=== PATIENT | male | born 1980 ===

== ENCOUNTER 2018-10-15 15:13 | Emergency (ER) | payer OTHER ==
--- NOTE | 2018-10-15 15:26 | ER Report ---
History and Physical Time Seen By MD: 15:26 Hx. of Stated Complaint: Pt. slipped on ice back in March, no acute injury. Now has right buttock pain that radiates down his leg into his calf. Pain 8/10. Pt. seen at urgent care on Saturday, given Flexeril and Prednisone dose pack and isn't getting any relief. HPI/ROS CHIEF COMPLAINT: Right leg pain HISTORY OF PRESENT ILLNESS: 38 year old male presents to ED with reports of right leg pain. Back in March patient slipped on an ice patch and fell on his back. At that time he had back pain that lasted for several weeks, however it eventually went away. 2 weeks ago the same type of back pain returned. Reports dull pain in right lower back that sent shooting, sharp, stabbing, and tingling sensations to his right hamstring and right calf. Denies numbness in his feet, denies saddle anesthesia. Patient reports he has taken 1/2 a tab of old hydrocodone a day since the pain started, which helped with the pain, but he took his last one this weekend. He went to Urgent care on Saturday where they prescribed him a medrol dose pack and cyclobenzaprine. However, his pain has worsened since that time. All movement including standing aggravates the pain; laying in a side lying position helps the pain. REVIEW OF SYSTEMS: Constitutional: Denies fevers, appetite changes Respiratory: No cough, no dyspnea. Cardiovascular: No chest pain, no palpitations. Gastrointestinal: No vomiting, no abdominal pain. Musculoskeletal: Back pain as noted above. Allergies: Coded Allergies: No Known Drug Allergies (Unverified , 10/15/18) Home Meds Active Scripts Hydrocodone Bit/Acetaminophen (HYDROCODON-ACETAMINOPHEN 5-325) 1 Each Tablet, 1 EACH PO Q4-6H PRN for PAIN, #6 TAB Prov:ELICIA MCMILLAN [employer] 10/15/18 Past Medical/Surgical History Past medical hx of FALGUNI. No significant past surgical hx. Reviewed Nurses Notes: Yes Constitutional Vital Sign - Last 24 Hours 10/15/18 10/15/18 10/15/18 10/15/18 15:16 15:18 15:23 15:28 Temp 97.8 Pulse 82 91 93 Resp 20 B/P (MAP) 151/97 151/97 (115) Pulse Ox 88 91 93 O2 Delivery Room Air 10/15/18 10/15/18 10/15/18 10/15/18 15:30 15:33 15:38 15:43 Pulse 86 81 85 B/P (MAP) 127/95 (106) Pulse Ox 94 90 90 10/15/18 10/15/18 10/15/18 10/15/18 15:48 16:14 16:18 16:23 Pulse 77 79 82 B/P (MAP) 138/95 (109) Pulse Ox 90 93 91 10/15/18 10/15/18 10/15/18 16:28 16:30 16:33 Pulse 88 84 B/P (MAP) 134/87 (103) Pulse Ox 89 90 Physical Exam General Appearance: The patient is alert, has no immediate need for airway protection and no current signs of toxicity. Eyes: Pupils equal and round no injection. Respiratory: Chest is non tender, lungs are clear to auscultation. Cardiac: regular rate and rhythm Gastrointestinal: Abdomen is soft and non tender, no masses, bowel sounds normal. Musculoskeletal: Neck: Neck is supple and non tender. Able to perform straight leg raise test, however, when lifting right leg, reports shooting pains. On palpation of right lower back, has mild pain. Sharp pain with palpation of mid hamstring. No pain with palpation of calf. Skin: No rashes or lesions. DIFFERENTIAL DIAGNOSIS: After history and physical exam differential diagnosis was considered for sciatica, disc disease, muscle strain, muscle spasm. Medical Decision Making EKG/Imaging Imaging Lumbar spine x-ray: Findings: AP lateral and both oblique views of the lumbar spine were submitted. There are five nonrib-bearing lumbar-type bodies present. Small marginal osteophyte are noted at L3, L4-L5. There is mild disc space narrowing at L4-5 and L5-S1. Period there is a small calcification projecting just posterior to the L2-3 level. There is a minimal levoconvex scoliosis IMPRESSION: 1. Mild spondylotic changes of lumbar spine as described. If patient's pain co ntinues MR is recommended SI joint x-ray: Findings: The SI joints appear symmetric bilaterally. No significant arthritic change identified within the SI joints. There is no gross evidence of a sacral fracture on provided images. IMPRESSION: 1. Unremarkable SI joints ED Course/Re-evaluation ED Course Upon arrival to the ED, patient admitted to an exam room, hx and physical obtained, differentials considered. Patient presents with right low back pain that radiates down his right leg. Back in March patient slipped on an ice patch and fell on his back. At that time he had back pain that lasted for several weeks, however it eventually went away. 2 weeks ago the same type of back pain returned. Reports dull pain in right lower back that sends shooting, sharp, stabbing, and tingling sensations to his right hamstring and right calf. Denies numbness in his feet, denies saddle anesthesia. He went to Urgent care on Saturday where they prescribed him a medrol dose pack and cyclobenzaprine. However, his pain has worsened since that time. Able to perform straight leg raise test, however, when lifting right leg, reports shooting pains. On palpation of right lower back, has mild pain. Sharp pain with palpation of mid hamstring. No pain with palpation of calf. Lumbar spine and SI joint x-rays ordered. Lumbar x-ray showed There is mild disc space narrowing at L4-5 and L5- S1. Unremarkable SI joints. Since no acute concern at this time, will refer patient to Dr. Garcia for further evaluation. In the meantime will prescribe Lrotab to help with the pain and have him continue his medrol dose pack and c yclobenzaprine he received from Urgent care. Patient agrees with plan of care. Decision to Disposition Date: Oct 15, 2018 Decision to Disposition Time: 16:40 Depart Departure Latest Vital Signs Vital Signs Date Time Temp Pulse Resp B/P (MAP) Pulse Ox O2 Delivery O2 Flow Rate FiO2 10/15/18 16:33 84 90 10/15/18 16:30 134/87 (103) 10/15/18 15:16 97.8 20 Room Air Impression: Primary Impression: Sciatic leg pain Condition: Condition Unchanged Disposition: HOME OR SELF-CARE Referrals: LUBA GARCIA MD New Scripts Hydrocodone Bit/Acetaminophen (HYDROCODON-ACETAMINOPHEN 5-325) 1 Each Tablet 1 EACH PO Q4-6H PRN for PAIN, #6 TAB Prov: ELICIA MCMILLAN [employer] 10/15/18 Patient Instructions: Sciatica (ED) Additional Instructions: Please drink plenty of water and get plenty of rest. You may take 1 tab of lortab every 4-6 hours as needed. Please follow-up with Dr. Garcia as soon as possible for continued pain. Continue to take the medications prescribed to you by Urgent care. Please return to the ED with increased pain, numbness in your extremities, or any other concerns. ELICIA MCMILLAN Oct 15, 2018 15:26
--- NOTE | 2018-10-15 16:28 | RADIOLOGY IMAGING REPORT ---
FACILITY: [facility] - [place] PATIENT NAME: Jimbo Varghese : 1980 MR: [id number] V: [id number] EXAM DATE: ORDERING PHYSICIAN: ELICIA MCMILLAN TECHNOLOGIST: Location: [facility] - [place] Patient: Jimbo Varghese : 1980 Visit/Account:[id number] Date of Sevice: 10/15/2018 Exam type: SACROILIAC JOINT 3 OR > VIEWS History: 2018, splinting numbness and tingling occasionally Comparison: None. Findings: The SI joints appear symmetric bilaterally. No significant arthritic change identified within the SI joints. There is no gross evidence of a sacral fracture on provided images. IMPRESSION: 1. Unremarkable SI joints Report Dictated By: Freya Garcia MD at 10/15/2018 4:22 PM Report E-Signed By: Freya Garcia MD at 10/15/2018 4:23 PM WSN:[email or web address]
[2018-10-15 16:30] VITALS: BP 134/87
--- NOTE | 2018-10-15 16:31 | RADIOLOGY IMAGING REPORT ---
FACILITY: [facility] - [place] PATIENT NAME: Jimbo Varghese : 1980 MR: [id number] V: [id number] EXAM DATE: ORDERING PHYSICIAN: ELICIA MCMILLAN TECHNOLOGIST: Location: [facility] - [place] Patient: Jimbo Varghese : 1980 Visit/Account:[id number] Date of Sevice: 10/15/2018 Exam type: L-SPINE >4 VIEWS History: Fell in March 2018, experiencing numbness and tingling occasionally Comparison: None. Findings: AP lateral and both oblique views of the lumbar spine were submitted. There are five nonrib-bearing lumbar-type bodies present. Small marginal osteophyte are noted at L3, L4-L5. There is mild disc space narrowing at L4-5 and L5-S1. Period there is a small calcification projecting just posterior to the L2-3 level. There is a minimal levoconvex scoliosis IMPRESSION: 1. Mild spondylotic changes of lumbar spine as described. If patient's pain continues MR is recomme nded Report Dictated By: Freya Garcia MD at 10/15/2018 4:23 PM Report E-Signed By: Freya Garcia MD at 10/15/2018 4:25 PM WSN:[email or web address]
[2018-10-15] MEDS ORDERED: LOR5/325 PO (16:43)
== END 2018-10-15 16:52 | disposition home or self-care (01) ==
LOC: ER 15:21
DX: M54.31 Sciatica, right side (principal)
CPT/HCPCS: 72120; 72202; 99284

== ENCOUNTER 2018-11-24 13:47 | Emergency (ER) | payer OTHER ==
[~2018-11-24 13:47] MED LIST: LOR5/325 PO
[2018-11-24 14:22] VITALS: BP 132/97
--- NOTE | 2018-11-24 14:56 | ER Report ---
History and Physical Time Seen By MD: 13:50 Hx. 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 Cardiovascular: No chest pain, no palpitations. Gastrointestinal: No vomiting, no abdominal pain. Musculoskeletal: No back pain. Remainder of the 14 system rev: Yes Allergies: Coded Allergies: No Known Drug Allergies (Unverified , 11/24/18) Home Meds Discontinued Scripts Hydrocodone Bit/Acetaminophen (HYDROCODON-ACETAMINOPHEN 5-325) 1 Each Tablet, 1 EACH PO Q4-6H PRN for PAIN, #6 TAB Prov:ELICIA MCMILLAN [employer]ING CLE[employer]ER 10/15/18 Reviewed Nurses Notes: Yes Old Medical Records Reviewed: Yes Constitutional Vital Sign - Last 24 Hours 11/24/18 14:22 Temp 99.5 Pulse 117 Resp 16 B/P (MAP) 132/97 Pulse Ox 89 O2 Delivery Room Air Physical Exam General appearance: Alert no distress. Respiratory: Chest is non tender, lungs are clear to auscultation. Cardiac: Regular rate and rhythm [ ] Scrotal inguinal exam patient does have a 6 x 8 cm area and around the inguinal and scrotal region consistent with a probable abscess nonfluctuant somewhat mobile clearly indurated DIFFERENTIAL DIAGNOSIS: After history and physical exam differential diagnosis was considered for abscess versus mass Medical Decision Making ED Course/Re-evaluation ED Course ED course 38-year-old male comes in with an indurated abscess in the right inguinal area unable to be drained at this time with procedure talked to general surgery after the ultrasound he had reviewed decided was put on antibiotics in the next 2 days and have him follow-up in his clinic I will he'll hopefully have enough up to drain at that point Decision to Disposition Date: Nov 24, 2018 Decision to Disposition Time: 15:00 Depart Departure Latest Vital Signs Vital Signs Date Time Temp Pulse Resp B/P (MAP) Pulse Ox O2 Delivery O2 Flow Rate FiO2 7/15/19 14:22 99.5 117 16 132/97 89 Room Air Impression: Primary Impression: Abscess Condition: Condition Unchanged Disposition: HOME OR SELF-CARE Referrals: JOSE PRECIADO MD 2 Days New Scripts Amoxicillin/Pot Clav 875-125 Mg Tab (AUGMENTIN 875-125 TABLET) 1 Each Tablet 1 TAB PO Q12H for 7 Days, #14 TAB Prov: JAYESH MACDONALD MD 11/24/18 Patient Instructions: Abscess (ED) Additional Instructions: Apply warm compresses frequently JAYESH MACDONALD MD Nov 24, 2018 14:56
[2018-11-24] MEDS ORDERED: AMOX-559 PO (15:04)
--- NOTE | 2018-11-24 15:13 | RADIOLOGY IMAGING REPORT ---
FACILITY: [facility] - [place] PATIENT NAME: Jimbo Varghese : 1980 MR: [id number] V: [id number] EXAM DATE: ORDERING PHYSICIAN: JAYESH MACDONALD TECHNOLOGIST: Location: [facility] Patient: Jimbo Varghese : 1980 Visit/Account:[id number] Date of Sevice: 11/24/2018 EXAMINATION: Right groin ultrasound HISTORY: Palpable lump at the right groin. COMPARISON: None. FINDINGS: Ultrasound evaluation was performed along the soft tissues of the right groin in an area of palpable concern. Imaging in this region demonstrates a complex hypoechoic fluid collection measuring 2.6 x 2.6 x 1.0 c m, with some peripheral hyperemia and adjacent soft tissue edema. IMPRESSION: Complex 2.6 cm fluid collection in the superficial soft tissues at the right groin. Ultrasound appear ance is somewhat nonspecific but in the proper clinical setting this could be compatible with a local ized soft tissue abscess. Report Dictated By: Garland Mitchell MD at 11/24/2018 3:03 PM Report E-Signed By: Garland Mitchell MD at 11/24/2018 3:06 PM WSN:[id number]
[2018-11-26] MEDS ORDERED: TRAM-420 PO (17:23)
== END 2018-11-24 15:14 | disposition home or self-care (01) ==
LOC: ER 14:17
DX: L02.214 Cutaneous abscess of groin (principal)
CPT/HCPCS: 76705; 99284

== ENCOUNTER → 2018-11-26 | Outpatient (CLI) | payer OTHER ==
[~2018-11-26] MED LIST changes: +AMOX-559 PO; +ENOX40DI9 SC; +ERTA1VIA IV; +PANT40VI4 IVP; +TRAM-420 PO; +VANC1.5V3 IV; +[UNRECOGNIZED DRUG - CODE] IV
== END ==
LOC: LAB 17:09
PROVIDERS: ATTEND Surgery
DX: N49.2 Inflammatory disorders of scrotum (principal); B95.1 Streptococcus, group B, as the cause of diseases classified elsewhere; B96.89 Other specified bacterial agents as the cause of diseases classified elsewhere
CPT/HCPCS: 87070; 87073; 87077; 87186

== ENCOUNTER 2018-11-28 12:26 | Inpatient (IN) | payer OTHER ==
[~2018-11-28] VITALS: Ht 175.3 cm; Wt 149.7 kg
[2018-11-28] VITALS (18 sets, daily range): BP systolic 102–124; BP diastolic 60–76
[~2018-11-28 12:26] MED LIST changes: -ENOX40DI9 SC; -ERTA1VIA IV; -PANT40VI4 IVP; -VANC1.5V3 IV; -[UNRECOGNIZED DRUG - CODE] IV
--- NOTE | 2018-11-28 12:28 | ER Report ---
History and Physical Time Seen By MD: 12:25 HPI/ROS CHIEF COMPLAINT: Fever, tachycardic, decreased appetite, altered mental status HISTORY OF PRESENT ILLNESS: Patient is a 38-year-old male here with complaints of nausea, decreased appetite, altered mental status, fevers, dehydration in the setting of a recent groin abscess drainage on November [address] Madrigal. Patient reportedly has had increasing pain today, decreased appetite, nausea and reports of altered mental status per patient's fiance. Patient is afebrile, tachycardic, normotensive at time of arrival. REVIEW OF SYSTEMS: Constitutional: + fever, + chills. Eyes: No discharge. ENT: No sore throat. Cardiovascular: No chest pain, no palpitations. Respiratory: No cough, no shortness of breath. Gastrointestinal: + abdominal pain, no vomiting.+ Nausea Genitourinary: No hematuria. Testicular pain, recent history of testicular abscess Musculoskeletal: No back pain. Skin: Erythema of the groin and right side of the scrotum Neurological: No headache. + Somnolent, altered mental status Allergies: Coded Allergies: No Known Drug Allergies (Unverified , 11/24/18) Home Meds Active Scripts Tramadol Hcl (TRAMADOL HCL) 50 Mg Tablet, 1-2 TAB PO Q4H PRN for PAIN, #20 TAB 0 Refills Prov:JOSE PRECIADO MD 11/26/18 Amoxicillin/Pot Clav 875-125 Mg Tab (AUGMENTIN 875-125 TABLET) 1 Each Tablet, 1 TAB PO Q12H for 7 Days, #14 TAB Prov:JAYESH MACDONALD MD 11/24/18 Discontinued Scripts Hydrocodone Bit/Acetaminophen (HYDROCODON-ACETAMINOPHEN 5-325) 1 Each Tablet, 1 EACH PO Q4-6H PRN for PAIN, #6 TAB Prov:ELICIA MCMILLAN [employer] 10/15/18 Constitutional Vital Sign - Last 24 Hours 11/28/18 11/28/18 12:37 13:03 Temp 99.6 Pulse 129 Resp 16 B/P (MAP) 126/78 Pulse Ox 87 O2 Delivery Room Air O2 Flow Rate 2.0 Physical Exam General Appearance: The patient is alert, has no immediate need for airway protection and no signs of toxicity. Uncomfortable appearing Eyes: Pupils equal and round no pallor or injection. ENT, Mouth: Mucous membranes are moist. Respiratory: There are no retractions, lungs are clear to auscultation. Cardiovascular: Sinus tachycardia Gastrointestinal: Abdomen is soft and tender in the lower abdominal distribution into the right groin and testicle Neurological: Somnolent, slow to respond, moving all extremities spontaneously, cranial nerves intact Skin: Erythema and tenderness in the right groin and scrotum Musculoskeletal: Extremities are nontender, nonswollen and have full range of motion. DIFFERENTIAL DIAGNOSIS: After history and physical exam differential diagnosis w as considered for adult fever including but not limited to viral syndromes including influenza, urinary tract infection, pneumonia and sepsis. Medical Decision Making Data Points Result Diagram: 11/28/18 1254 11/28/18 1254 Laboratory Hematology Test 11/28/18 12:54 White Blood Count 9.0 k/uL (4.5-11.0) Red Blood Count 4.83 M/uL (4.00-5.60) Hemoglobin 14.7 g/dL (14.0-18.0) Hematocrit 42.6 % (42.0-52.0) Mean Corpuscular Volume 88.3 fL (80.0-96.0) Mean Corpuscular Hemoglobin 30.5 pg (26.0-33.0) Mean Corpuscular Hemoglobin Concent 34.6 g/dL (32.0-36.0) Red Cell Distribution Width 13.5 % (11.5-14.5) Platelet Count 192 K/uL (150-450) Mean Platelet Volume 9.7 fL (7.2-11.1) Neutrophils (%) (Auto) 85.4 % (39.4-72.5) H Lymphocytes (%) (Auto) 8.8 % (17.6-49.6) L Monocytes (%) (Auto) 5.0 % (4.1-12.4) Eosinophils (%) (Auto) 0.1 % (0.4-6.7) L Basophils (%) (Auto) 0.7 % (0.3-1.4) Nucleated RBC Relative Count (auto) 0.2 /100WBC Neutrophils # (Auto) 7.7 K/uL (2.0-7.4) H Lymphocytes # (Auto) 0.8 K/uL (1.3-3.6) L Monocytes # (Auto) 0.4 K/uL (0.3-1.0) Eosinophils # (Auto) 0.0 K/uL (0.0-0.5) Basophils # (Auto) 0.1 K/uL (0.0-0.1) Nucleated RBC Absolute Count (auto) 0.01 K/uL Chemistry Test 11/28/18 12:54 Sodium Level 127 mmol/L (137-145) Potassium Level 3.9 mmol/L (3.5-5.0) Chloride Level 92 mmol/L (98-107) Carbon Dioxide Level 16 mmol/L (22-30) Blood Urea Nitrogen 23 mg/dl (9-21) Creatinine 0.80 mg/dl (0.66-1.25) Glomerular Filtration Rate Calc > 60.0 Random Glucose 577 mg/dl (75-110) Lactate 2.9 mmol/L (0.7-2.1) Calcium Level 9.1 mg/dl (8.4-10.2) Total Bilirubin 0.9 mg/dl (0.2-1.3) Aspartate Amino Transf (AST/SGOT) 27 U/L (0-35) Alanine Aminotransferase (ALT/SGPT) 25 U/L (0-56) Alkaline Phosphatase 132 U/L (0-126) Total Protein 7.1 g/dl (6.3-8.2) Albumin 3.3 g/dl (3.5-5.0) Lipase 515 U/L (23-300) Urinalysis Test 11/28/18 12:54 Urine Color Yellow Urine Clarity Slightly-cloudy Urine pH 6.0 pH (4.8-9.5) Urine Specific [place] 1.028 Urine Protein 30 mg/dL (NEGATIVE) Urine Glucose (UA) 500 mg/dL (NEGATIVE) Urine Ketones 20 mg/dL (NEGATIVE) Urine Blood Moderate (NEGATIVE) Urine Nitrite Negative (NEGATIVE) Urine Bilirubin Negative (NEGATIVE) Urine Urobilinogen 2.0 mg/dL (0.2-1.9) Urine Leukocyte Esterase Large (NEGATIVE) Urine RBC 15 /HPF (0-2/HPF) Urine WBC 30 /HPF (0-5/HPF) Urine Squamous Epithelial Cells Many /LPF (</=FEW) Urine Bacteria Few /HPF (NONE-FEW) Urine Mucus Few /HPF (NONE-FEW) EKG/Imaging Imaging PATIENT NAME: Jimbo Varghese : 1980 MR: [id number] V: [id number] EXAM DATE: ORDERING PHYSICIAN: ROME BROWN TECHNOLOGIST: Location: [facility] - [place] Patient: Jimbo Varghese : 1980 Visit/Account:[id number] Date of Sevice: 11/28/2018 Scrotal and groin ultrasound INDICATION: Draining abscess COMPARISON: Groin ultrasound 11/24/[address] chest abdomen pelvis 11/28/2018 FINDINGS: Right testicle measures 4.3 x 1.8 x 2.9 cm in cc, AP, and transverse dimensions respectively. Increased blood flow is noted within the right testis and the epididymis There is a moderate complex fluid collection present No varicocele identified. The right epididymal head measures 0.9cm. And the body is diffusely enlarged and hyperemic Left testicle measures 3.1 x 1.9 x 3.2 cm in cc, AP, and transverse dimensions respectively. There is diffusely increased blood flow noted There is a large very complex hydrocele present. No varicocele identified. The left epididymal head measures 0.9 cm. The epididymis is diffusely enlarged and increased in vascularity The bilateral testicles appear homogenous in echogenicity. Groin ultrasound demonstrates no significant fluid collection. Previously described small fluid collection within the right groin appears to have resolved. IMPRESSION: 1. There are complex bilateral fluid hydroceles left greater than right. Bilaterally, there is increased blood flow noted within the testes and heterogeneously enlarged and vascular epididymides. Findings are concerning for bilateral epididymal orchitis with bilateral hydroceles. When compared to recent CT scan, diffuse inflammation and complex fluid collections are also noted on CT scan. Recommend urology consultation. 2. Interval resolution of complex fluid within the right groin. No fluid collection is noted within the left groin. Results were discussed with ROME BROWN at 11/28/2018 3:13 PM. Report Dictated By: Jd Diaz at 11/28/2018 2:52 PM Report E-Signed By: Jd Diaz at 11/28/2018 3:13 PM PATIENT NAME: Jimbo Varghese : 1980 MR: [id number] V: [id number] EXAM DATE: ORDERING PHYSICIAN: ROME BROWN TECHNOLOGIST: Location: [facility] [place] Patient: Jimbo Varghese : 1980 Visit/Account:[id number] Date of Sevice: 11/28/2018 Scrotal and groin ultrasound INDICATION: Draining abscess COMPARISON: Groin ultrasound 11/24/[address] chest abdomen pelvis 11/28/2018 FINDINGS: Right testicle measures 4.3 x 1.8 x 2.9 cm in cc, AP, and transverse dimensions respectively. Increased blood flow is noted within the right testis and the epididymis There is a moderate complex fluid collection present No varicocele identified. The right epididymal head measures 0.9cm. And the body is diffusely enlarged and hyperemic Left testicle measures 3.1 x 1.9 x 3.2 cm in cc, AP, and transverse dimensions respectively. There is diffusely increased blood flow noted There is a large very complex hydrocele present. No varicocele identified. The left epididymal head measures 0.9 cm. The epididymis is diffusely enlarged and increased in vascularity The bilateral testicles appear homogenous in echogenicity. Groin ultrasound demonstrates no significant fluid collection. Previously described small fluid collection within the right groin appears to have reso lved. IMPRESSION: 1. There are complex bilateral fluid hydroceles left greater than right. Bilat erally, there is increased blood flow noted within the testes and heterogeneously enlarged and vascular epididymides. Findings are concerning for bilateral epididymal orchitis with bilateral hydroceles. When compared to recent CT scan, diffuse inflammation and complex fluid collections are also no wilson on CT scan. Recommend urology consultation. 2. Interval resolution of complex fluid within the right groin. No fluid collection is noted within the left groin. Results were discussed with ROME BROWN at 11/28/2018 3:13 PM. PATIENT NAME: Jimbo Varghese : 1980 MR: [id number] V: [id number] EXAM DATE: ORDERING PHYSICIAN: ROME BROWN TECHNOLOGIST: Location: [facility] [place] Patient: Jimbo Varghese : 1980 Visit/Account:[id number] Date of Sevice: 11/28/2018 EXAMINATION: CT chest, abdomen, and pelvis with IV contrast HISTORY: Sepsis. History of scrotal abscess, abdominal pain, AMS TECHNIQUE: Axial CT images of the chest, abdomen, and pelvis were obtained with IV contrast, with coronal and sagittal 2D reconstructed images. One of the following dose optimization techniques was utilized in the pe rformance of this exam: Automated exposure control; adjustment of the mA and/or kV according to the patient's size; or use of an iterative reconstruction technique. Specific details can be referenced in the facility's radiology CT exam operational policy. Contrast: 75 mL of IV Isovue-370. COMPARISON: Right groin ultrasound 11/24/2018. FINDINGS: Chest: Lungs and pleura: The lungs are clear. No focal consolidation. No pleural effusion or pneumothorax. The central airways are patent. Mediastinum and trini: Negative. Heart, aorta, and great vessels: Normal caliber thoracic aorta. Normal heart size. No pericardial effusion. Chest lymph node assessment: Negative. Bones: Negative. Chest wall: Negative. Lower neck: Negative. Abdomen/pelvis: Liver: Fatty infiltration of the liver. Gallbladder and bile ducts: Negative. Spleen: Negative. Pancreas: Negative. Adrenal glands: Negative. Kidneys: Normal size and morphology of both kidneys. The kidneys enhance normally. No urinary calculi or hydronephrosis. Bowel and peritoneum: The small bowel and colon are normal in caliber, without evidence of obstruction or any focal inflammatory process. No localized bowel wall thickening. Normal appendix. No free fluid or free intraperitoneal air. Pelvic structures: The urinary bladder is decompressed with a Fabian catheter in place. There is diffuse soft tissue edema along the scrotum and perineum. No soft tissue gas. There is a complex peripherally enhancing fluid collection in the left hemiscrotum surrounding the left testicle which may represent a complex hydrocele, pyocele, or abscess. This measures approximately 8.0 x 4.3 x 6.8 cm. No scrotal gas. There is a smaller right-sided likely complex hydrocele or pyocele partially surrounding the right testicle. Scrotal findings could be further evaluated with ultrasound. No discrete CT evidence of a soft tissue abscess at either groin. There is some nonloculated fluid and edema tracking tinsley periorly along the right groin. Lymph node assessment: Negative. Vessels: Negative. Musculoskeletal: Scattered degenerative changes along the lumbar spine. No acute osseous findings. Body wall: Abdominal wall structures appear intact. There is some nonloculated fluid tracking along the right groin. IMPRESSION: 1. There is diffuse scrotal edema with a moderate sized peripherally enhancing fluid collection in the left hemiscrotum surrounding the left testicle which may represent complex hydrocele, pyocele, or abscess. Smaller right-sided peritesticular fluid collection. 2. Soft tissue edema and stranding tracks posteriorly along the perineum and superiorly along the right groin. No scrotal or perineal gas. 3. No other acute findings in the chest, abdomen, or pelvis. 4. Hepatic steatosis. Report Dictated By: Garland Mitchell MD at 11/28/2018 2:44 PM ED Course/Re-evaluation ED Course Patient is a 38-year-old male here with complaints of subjective fevers, chills, testicular pain at the site of a prior abscess drainage, nausea, somnolence. Se psis workup was initiated, blood cultures were collected, IV fluid resuscitation was initiated and patient was administered ertapenem for antimicrobial coverage. Patient reportedly has been taking Augmentin without improvement. Patient was given 3 subsequent liters of normal saline boluses with improvement of hemodynamic's. CT imaging of the chest and pelvis were completed as well as ultrasound of the groin testes identifying complex hydroceles bilaterally. I discussed the patient with Dr. Gallo with urology and with Dr. Thorne with the hospitalist service. Patient was admitted for further treatment and care. Decision to Disposition Date: Nov 28, 2018 Decision to Disposition Time: 16:04 Depart Departure Latest Vital Signs Vital Signs Date Time Temp Pulse Resp B/P (MAP) Pulse Ox O2 Delivery O2 Flow Rate FiO2 11/28/18 13:03 2.0 11/28/18 12:37 99.6 129 16 126/78 87 Room Air Impression: Primary Impression: Testicular abscess Additional Impression: Sepsis Condition: Improved Disposition: Admitted from ER Referrals: JOSE PRECIADO MD (PCP) Problem Qualifiers ROME BROWN DO Nov 28, 2018 12:28
[2018-11-28] MEDS ORDERED: KETOROLAC 30 MG/ML VIAL IVP ONE (12:40)
[2018-11-28] MEDS ORDERED: fentaNYL CITR 100 MCG/2 ML AMP IVP ONE (12:40)
[2018-11-28] MEDS ORDERED: NS(*) 0.9% 1000 ML BAG 1,000 ML IV ONE ×3 (12:40→15:20)
[2018-11-28] MEDS ORDERED: ERTAPENEM(*) 1 GM VIAL 1 GM in NS(*) 0.9% 100 ML MINI-BAG 100 ML IVPB ONE (12:50)
[2018-11-28 13:15] LABS: PLATELET COUNT, AUTOMATED 192 K/uL (150-450)
[2018-11-28] MEDS ORDERED: IOPAMIDOL 76% 100 ML INFUS BTL 100 ML ONE (13:23)
[2018-11-28] MEDS ORDERED: ACETAMINOPHEN(*)1000 MG/100 ML 100 ML IVPB ONE (13:45)
--- NOTE | 2018-11-28 15:04 | RADIOLOGY IMAGING REPORT ---
FACILITY: [facility] - [place] PATIENT NAME: Jimbo Varghese : 1980 MR: [id number] V: [id number] EXAM DATE: ORDERING PHYSICIAN: ROME BROWN TECHNOLOGIST: Location: [facility] Patient: Jimbo Varghese : 1980 Visit/Account:[id number] Date of Sevice: 11/28/2018 EXAMINATION: CT chest, abdomen, and pelvis with IV contrast HISTORY: Sepsis. History of scrotal abscess, abdominal pain, AMS TECHNIQUE: Axial CT images of the chest, abdomen, and pelvis were obtained with IV contrast, with c oronal and sagittal 2D reconstructed images. One of the following dose optimization techniques was utilized in the performance of this exam: Autom ated exposure control; adjustment of the mA and/or kV according to the patient's size; or use of an i terative reconstruction technique. Specific details can be referenced in the facility's radiology C T exam operational policy. Contrast: 75 mL of IV Isovue-370. COMPARISON: Right groin ultrasound 11/24/2018. FINDINGS: Chest: Lungs and pleura: The lungs are clear. No focal consolidation. No pleural effusion or pneumothorax. The central airways are patent. Mediastinum and trini: Negative. Heart, aorta, and great vessels: Normal caliber thoracic aorta. Normal heart size. No pericardial ef fusion. Chest lymph node assessment: Negative. Bones: Negative. Chest wall: Negative. Lower neck: Negative. Abdomen/pelvis: Liver: Fatty infiltration of the liver. Gallbladder and bile ducts: Negative. Spleen: Negative. Pancreas: Negative. Adrenal glands: Negative. Kidneys: Normal size and morphology of both kidneys. The kidneys enhance normally. No urinary calcul i or hydronephrosis. Bowel and peritoneum: The small bowel and colon are normal in caliber, without evidence of obstructi on or any focal inflammatory process. No localized bowel wall thickening. Normal appendix. No free fl uid or free intraperitoneal air. Pelvic structures: The urinary bladder is decompressed with a Fabian catheter in place. There is d iffuse soft tissue edema along the scrotum and perineum. No soft tissue gas. There is a complex perip herally enhancing fluid collection in the left hemiscrotum surrounding the left testicle which may re present a complex hydrocele, pyocele, or abscess. This measures approximately 8.0 x 4.3 x 6.8 cm. No scrotal gas. There is a smaller right-sided likely complex hydrocele or pyocele partially surrounding the right testicle. Scrotal findings could be further evaluated with ultrasound. No discrete CT evid ence of a soft tissue abscess at either groin. There is some nonloculated fluid and edema tracking tinsley periorly along the right groin. Lymph node assessment: Negative. Vessels: Negative. Musculoskeletal: Scattered degenerative changes along the lumbar spine. No acute osseous findings. Body wall: Abdominal wall structures appear intact. There is some nonloculated fluid tracking along t he right groin. IMPRESSION: 1. There is diffuse scrotal edema with a moderate sized peripherally enhancing fluid collection in th e left hemiscrotum surrounding the left testicle which may represent complex hydrocele, pyocele, or a bscess. Smaller right-sided peritesticular fluid collection. 2. Soft tissue edema and stranding tracks posteriorly along the perineum and superiorly along the rig ht groin. No scrotal or perineal gas. 3. No other acute findings in the chest, abdomen, or pelvis. 4. Hepatic steatosis. Report Dictated By: Garland Mitchell MD at 11/28/2018 2:44 PM Report E-Signed By: Garland Mitchell MD at 11/28/2018 2:56 PM WSN:[id number]
--- NOTE | 2018-11-28 15:20 | RADIOLOGY IMAGING REPORT ---
FACILITY: [facility] - [place] PATIENT NAME: Jimbo Varghese : 1980 MR: [id number] V: [id number] EXAM DATE: ORDERING PHYSICIAN: ROME BROWN TECHNOLOGIST: Location: [facility] Patient: Jimbo Varghese : 1980 Visit/Account:[id number] Date of Sevice: 11/28/2018 Scrotal and groin ultrasound INDICATION: Draining abscess COMPARISON: Groin ultrasound 11/24/[address] chest abdomen pelvis 11/28/2018 FINDINGS: Right testicle measures 4.3 x 1.8 x 2.9 cm in cc, AP, and transverse dimensions respectively. Increased blood flow is noted within the right testis and the epididymis There is a moderate complex fluid collection present No varicocele identified. The right epididymal head measures 0.9cm. And the body is diffusely enlarged and hyperemic Left testicle measures 3.1 x 1.9 x 3.2 cm in cc, AP, and transverse dimensions respectively. There is diffusely increased blood flow noted There is a large very complex hydrocele present. No varicocele identified. The left epididymal head measures 0.9 cm. The epididymis is diffusely enlarged and increased in vascu larity The bilateral testicles appear homogenous in echogenicity. Groin ultrasound demonstrates no significant fluid collection. Previously described small fluid shayna ection within the right groin appears to have resolved. IMPRESSION: 1. There are complex bilateral fluid hydroceles left greater than right. Bilaterally, there is incr eased blood flow noted within the testes and heterogeneously enlarged and vascular epididymides. Fin dings are concerning for bilateral epididymal orchitis with bilateral hydroceles. When compared to r ecent CT scan, diffuse inflammation and complex fluid collections are also noted on CT scan. Recomme nd urology consultation. 2. Interval resolution of complex fluid within the right groin. No fluid collection is noted within the left groin. Results were discussed with ROME BROWN at 11/28/2018 3:13 PM. Report Dictated By: Jd Diaz at 11/28/2018 2:52 PM Report E-Signed By: Jd Diaz at 11/28/2018 3:13 PM WSN:[email or web address]
--- NOTE | 2018-11-28 15:20 | RADIOLOGY IMAGING REPORT ---
FACILITY: [facility] PATIENT NAME: Jimbo Varghese : 1980 MR: [id number] V: [id number] EXAM DATE: ORDERING PHYSICIAN: ROME BROWN TECHNOLOGIST: Location: [facility] - [place] Patient: Jimbo Varghese : 1980 Visit/Account:[id number] Date of Sevice: 11/28/2018 Scrotal and groin ultrasound INDICATION: Draining abscess COMPARISON: Groin ultrasound 11/24/[address] chest abdomen pelvis 11/28/2018 FINDINGS: Right testicle measures 4.3 x 1.8 x 2.9 cm in cc, AP, and transverse dimensions respectively. Increased blood flow is noted within the right testis and the epididymis There is a moderate complex fluid collection present No varicocele identified. The right epididymal head measures 0.9cm. And the body is diffusely enlarged and hyperemic Left testicle measures 3.1 x 1.9 x 3.2 cm in cc, AP, and transverse dimensions respectively. There is diffusely increased blood flow noted There is a large very complex hydrocele present. No varicocele identified. The left epididymal head measures 0.9 cm. The epididymis is diffusely enlarged and increased in vascu larity The bilateral testicles appear homogenous in echogenicity. Groin ultrasound demonstrates no significant fluid collection. Previously described small fluid shayna ection within the right groin appears to have resolved. IMPRESSION: 1. There are complex bilateral fluid hydroceles left greater than right. Bilaterally, there is incr eased blood flow noted within the testes and heterogeneously enlarged and vascular epididymides. Fin dings are concerning for bilateral epididymal orchitis with bilateral hydroceles. When compared to r ecent CT scan, diffuse inflammation and complex fluid collections are also noted on CT scan. Recomme nd urology consultation. 2. Interval resolution of complex fluid within the right groin. No fluid collection is noted within the left groin. Results were discussed with ROME BROWN at 11/28/2018 3:13 PM. Report Dictated By: Jd Diaz at 11/28/2018 2:52 PM Report E-Signed By: Jd Diaz at 11/28/2018 3:13 PM WSN:[email or web address]
[2018-11-28] MEDS ORDERED: INS HUM REG* 100 U/ML(ER ONLY) 100 UNIT in NS(*) 0.9% 100 ML BAG 99 ML IVPB ONE (16:25)
[2018-11-28] MEDS ORDERED: INSU HUM REG 100 U/ML(ER ONLY) 10 ML VIAL SUBQ ONE (16:30)
[2018-11-28] MEDS ORDERED: INFLUENZA VIRUS VAC 0.5ML SYR IM ONLY ONE (17:10)
[2018-11-28] MEDS ORDERED: KCL/NS* 20 MEQ/1000 ML PREMIX 1,000 ML IV SCH (17:10)
--- NOTE | 2018-11-28 17:55 | History & Physical ---
History of Present Illness History of Present Illness 38yo obese male who came to the ER for confusion, fever, and decreased appetite. About 4 months ago, he noted 3 pimples on the left side of his scrotum. He popped them and he did fine afterwards. Around the same time, he noted increasing thirst. About a week ago, he started having swelling and pain around the right scrotum. 4 days ago (11/24), he went to the ER and was found to have right sided scrotal abscess. He was put on Augmentin and then saw Dr. Preciado 2 days ago (11/26). The scrotum had increased in size by then. It was drained and then packed. He had a lot of drainage. He has had a fever for the last 2 days. He was incontinent of urine last night. Today, he was more nauseated, confused and febrile. He was brought to the ER. His significant other has noted unintentional weight loss over the last couple of months. He denies vision changes. In the ER, he was found to be tachy to 129 bpm, and a temperature of 99.6. SBP has been in the 90's. He was given 2.5 liters of fluid, the left scrotum was I&D'd by Dr. Castanon, Ertapenem was started. His heart rate has come down to the 100's. Glucose was 577. He was given 10 units of insulin and started on an insulin drip before transfer to the ICU. History Problems: (1) Sciatic leg pain Status: Acute (2) Obesity, Class III, BMI 40-49.9 (morbid obesity) Status: Chronic Home Meds Active Scripts Tramadol Hcl (TRAMADOL HCL) 50 Mg Tablet, 1-2 TAB PO Q4H PRN for PAIN, #20 TAB 0 Refills Prov:JOSE PRECIADO MD 11/26/18 Amoxicillin/Pot Clav 875-125 Mg Tab (AUGMENTIN 875-125 TABLET) 1 Each Tablet, 1 TAB PO Q12H for 7 Days, #14 TAB Prov:JAYESH MACDONALD MD 11/24/18 Discontinued Scripts Hydrocodone Bit/Acetaminophen (HYDROCODON-ACETAMINOPHEN 5-325) 1 Each Tablet, 1 EACH PO Q4-6H PRN for PAIN, #6 TAB Prov:ELICIA MCMILLAN 10/15/18 Allergies: Coded Allergies: No Known Drug Allergies (Unverified , 11/24/18) Other Social/Family Hx Works in a kitchen. Quit smoking 8 years ago, but smoked for 14 years at varying amounts. Occasional alcohol use. Review of Systems All Systems Reviewed/Normal: Yes, Except as Noted Exam Vital Signs Vital Signs Date Time Temp Pulse Resp B/P (MAP) Pulse Ox O2 Delivery O2 Flow Rate FiO2 11/28/18 17:00 93/45 (61) 11/28/18 16:51 99 7 95 11/28/18 13:03 2.0 11/28/18 12:37 99.6 Room Air General Appearance: Other (Eyes closed, breathing comfortably) Neuro: No Gross deficits (but sometimes gets days wrong when discussing hi story. Knows where he is and why he is here.) Eyes: PERRLA ENT: Moist Mucous Membranes Cardiovascular: Other (Borderline tachy. Regular.) Respiratory: Clear to Auscultation GI: Abd Soft and Non-Tender (Obese. No erythema in skin folds of abdomen) : Other (Large swollen testicles with packing in place bilaterally) Extremities: No Edema Integumentary: No Jaundice, No Cyanosis Medical Decision Making Data Points Result Diagram: 11/28/18 1254 11/28/18 1638 Item Value Date Time White Blood Count 9.0 k/uL 11/28/18 1254 Hemoglobin 14.7 g/dL 11/28/18 1254 Hematocrit 42.6 % 11/28/18 1254 Neutrophils (%) (Auto) 85.4 % H 11/28/18 1254 Platelet Count 192 K/uL 11/28/18 1254 Lymphocytes (%) (Auto) 8.8 % L 11/28/18 1254 Monocytes (%) (Auto) 5.0 % 11/28/18 1254 Eosinophils (%) (Auto) 0.1 % L 11/28/18 1254 Urine Leukocyte Esterase Large H 11/28/18 1254 Urine RBC 15 /HPF 11/28/18 1254 Urine WBC 30 /HPF 11/28/18 1254 Urine Squamous Epithelial Cells Many /LPF H 11/28/18 1254 Urine Urobilinogen 2.0 mg/dL 11/28/18 1254 Urine Ketones 20 mg/dL H 11/28/18 1254 Random Glucose 524 mg/dl *H 11/28/18 1638 Whole Blood Glucose 508 mg/DL *H 11/28/18 1623 Lactate 2.9 mmol/L H 11/28/18 1254 Lipase 515 U/L H 11/28/18 1254 Calcium Level 9.1 mg/dl 11/28/18 1254 Total Bilirubin 0.9 mg/dl 11/28/18 1254 Aspartate Amino Transf (AST/SGOT) 27 U/L 11/28/18 1254 Alanine Aminotransferase (ALT/SGPT) 25 U/L 11/28/18 1254 Alkaline Phosphatase 132 U/L H 11/28/18 1254 Venous Blood pH 7.30 L 11/28/18 1254 Venous Blood Partial Pressure CO2 29 mmHg 11/28/18 1254 Venous Blood Partial Pressure O2 64 mmHg 11/28/18 1254 Venous Blood Oxygen Saturation 91 % 11/28/18 1254 Venous Blood HCO3 14 mmol/L 11/28/18 1254 EKG / Imaging Imaging Testicular/Groin US - 1. There are complex bilateral fluid hydroceles left greater than right. Bilaterally, there is increased blood flow noted within the testes and heterogeneously enlarged and vascular epididymides. Findings are concerning for bilateral epididymal orchitis with bilateral hydroceles. When compared to recent CT scan, diffuse inflammation and complex fluid collections are also noted on CT scan. Recommend urology consultation. 2. Interval resolution of complex fluid within the right groin. No fluid collection is noted within the left groin. Chest/Abd/Pelvis CT - 1. There is diffuse scrotal edema with a moderate sized peripherally enhancing fluid collection in the left hemiscrotum surrounding the left testicle which may represent complex hydrocele, pyocele, or abscess. Smaller right-sided peritesticular fluid collection. 2. Soft tissue edema and stranding tracks posteriorly along the perineum and superiorly along the right groin. No scrotal or perineal gas. 3. No other acute findings in the chest, abdomen, or pelvis. 4. Hepatic steatosis. Assessment and Plan Problems: (1) Sepsis Status: Acute Assessment & Plan: He presented with a fever for 2 days, worsening nausea, and confusion today. He had an elevated lactate, tachycardia, SBP in the 90's and a neutrophil predominance. He was given 2.5 liters of crystalloid in the ER. HR has come down to the 90-100's. His mental status is improving. Will recheck lactate. Cultures pending and treatment has begun. See below. (2) DKA (diabetic ketoacidoses) Status: Acute Assessment & Plan: He presented with 4 months of increased UOP and 2 months of unintentional weight loss. His AG is 19, VBG pH of 7.3, and a glucose of 577. He was given 10 units of IV insulin in the ER and started on a drip of 8 units/hour. HgA1c and C-Peptide tomorrow. Once the infection has cleared, then will have a better idea of treatment options. Based on body habitus, this is likely T2DM, so he might be able to be on oral medications. (3) Scrotal wall abscess Status: Acute Assessment & Plan: He had right sided scrotal symptoms for a week prior to admission. He went to the ER and was started on Augmentin 4 days prior to admission. It was drained by Dr. Preciado 2 days prior to admission. It is now bilateral and was I&D's by Dr. Castanon in the ER. The patient has had wound, blood and urine cultures done. Ertapenem was started in the ER and will be continued. (4) Obesity, Class III, BMI 40-49.9 (morbid obesity) Status: Chronic Copies to: FINESSE CASTANON MD; JOSE PRECIADO MD ; Venous Thromboembolism Antithrombotics Is Pt On Any Antithrombotics?: No Exam Sepsis Risk: No Definite Risk DARBY BHATT MD Nov 28, 2018 17:54
[2018-11-28] MEDS: KCL/NS* 20 MEQ/1000 ML PREMIX 1,000 ML IV SCH ×2 (18:12→22:15)
--- NOTE | 2018-11-28 18:50 | CONSULTATION ---
EVENT DATE: November 28, 2018 REASON FOR CONSULTATION Bilateral scrotal infection. HISTORY OF PRESENT ILLNESS Patient is a 38-year-old obese male who presented to the Emergency Room with bilateral scrotal swelling and general malaise. Of note, the patient has recently seen Dr. Rivera Bunch of General Surgery and had a right scrotal abscess drained. The packing of this abscess was removed several hours before admission. Upon admission, he was evaluated by the emergency room physician, who obtained laboratory data which revealed a significantly elevated blood glucose of greater than 500. His white count was not elevated; however, he did have a left shift of 85% neutrophils. His lactate was mildly elevated at 2.9. His electrolytes revealed a sodium of 127 and a CO2 of 16. His LFTs were normal. His lipase was elevated at 515. The patient was evaluated with both a scrotal ultrasound and a CT of the abdomen and pelvis. His CT revealed a Fabian catheter in place. He was noted to have diffuse scrotal edema with peripherally enhancing fluid collection on the left side surrounding the testis, consistent with a pyocele or early abscess. He had a very small process on the right side. The testes themselves appeared grossly normal. There was no air in the soft tissue surrounding the scrotum or perineal tissue. A testicular ultrasound revealed "complex bilateral fluid hydroceles, left greater than right, with increased vascularity bilaterally." PAST MEDICAL HISTORY Low back pain. PAST SURGICAL HISTORY None except I and D of the scrotum recently. MEDICINES 1. Amoxicillin. 2. Tramadol. ALLERGIES No known drug allergies. SOCIAL HISTORY Patient lives in [place], [place]. REVIEW OF SYSTEMS Patient denies prior UTI, kidney stones, gross hematuria, nausea, vomiting, chest pain, shortness of breath, or bleeding disorder. PHYSICAL EXAMINATION GENERAL: Patient is an obese male, examined in the Emergency Room on the bed gantry. HEENT: Normocephalic, atraumatic. He has poor dentition. CARDIOVASCULAR: Regular rate and rhythm. ABDOMEN: Soft, nontender, obese. No masses are palpated. GENITOURINARY: Fabian catheter in place. He has a prominent suprapubic fat pad resulting in a hidden penis. He has bilateral erythema and moderate swelling of both eagle-scrotums. There is a 1 cm I and D site on the anterior right scrotum with a small eschar. It is not currently draining any material. On the left, it is moderately tender to palpation. The skin is not fixed to the underlying tissues. There is no crepitus bilaterally. He has no pain in the posterior scrotum or perineal area and no pain in the groin. He has some mild shotty adenopathy in the bilateral groins. EXTREMITIES: Without clubbing, cyanosis, or edema. NEUROLOGIC: Nonfocal. IMPRESSION A 38-year-old white male with bilateral infected hydrocele vent or early epididymal orchitis. It appears he also has undiagnosed diabetes, which is currently in poor control. RECOMMENDATIONS The patient likely needs to be admitted to the Internal Medicine Service for acute control of his diabetes and poor hemodynamic stability with broad-spectrum antibiotics. I will perform a local scrotal exploration and I and D of abscess at bedside with possible need for OR intervention with formal I and D, debridement, and irrigation. Currently, there is no evidence of necrotizing fasciitis in the scrotum or perineum, and this did not appear to be involving the periurethral tissues, but appears to be more emanating from the testis and epididymis. Also obtain a urine culture from recently placed Fabian catheter, which will eliminate his urine specimen which was consistent with contamination. JENN
--- NOTE | 2018-11-28 19:23 | OPERATIVE REPORT 1 ---
EVENT DATE: November 28, 2018 SURGEON: Chip Gallo MD ANESTHESIOLOGIST: None. ANESTHESIA: Local anesthetic at skin with 2% lidocaine. PREOPERATIVE DIAGNOSIS Bilateral scrotal abscesses/infected hydroceles. POSTOPERATIVE DIAGNOSIS Bilateral scrotal abscesses/infected hydroceles. PROCEDURE PERFORMED Bilateral scrotal incision and drainage with irrigation of wound. PATHOLOGY Gram stain and culture from left hemiscrotum I and D. DRAINS Both incisions packed with 1/4-inch Nu Gauze. COMPLICATIONS None. CONDITION Patient stable at the conclusion of procedure. STATEMENT OF MEDICAL NECESSITY Patient is a 38-year-old male who presented to the Emergency Room with scrotal pain and malaise. He was found to have bilateral complex hydroceles consistent with infection by CT and sonogram. Of note, he had an I and D approximately three days prior by Dr. Rivera Bunch of General Surgery. Cultures were obtained, which revealed rare yeast and lactobacillus in 1+ growth. The patient was started on Augmentin and had a drain placed on the right side. This drain was removed yesterday, and now he is presenting with the above findings. These findings were discussed with the patient and his significant other, and he has elected to undergo bedside drainage and I and D. He understands that if this is an extensive process, we may need to proceed to the operating room for formal I and D, complete irrigation, possible debridement of tissue including up to scrotum, testis, and surrounding structures. DESCRIPTION OF PROCEDURE PERFORMED The procedure was performed in the Emergency Room on the patient's bed. He was in the supine position. He was first prepped and draped and sterilely. The left eagle-scrotum was infiltrated with 2% lidocaine. Following this, a 14- Wallisian Angiocath was introduced, and an attempt was done to drain any purulent material. Only approximately 2 to 3 mL of purulent-looking material was drained. This was sent for culture and Gram stain. Following this, incision and drainage was performed using an 11 blade scalpel. Approximately 1 cm incision was made. The incision was explored with a sterile Q-tip. He appeared to have several loculated areas of purulent material, which were broken up with the Q-tip. The fluid appeared to be light brown in color, but had no malodorous odor. The testis itself palpated fairly normal, although was tender. Following this, the wound was irrigated with approximately 100 mL of normal saline, and this was drained out as well. After this was performed, the wound was packed with 1/4-inch Nu Gauze. At this time, attention was directed toward the right side. The previous incision had a small amount of eschar just inside the opening. A Q-tip applicator was used to explore this incision. It was significantly smaller than the left side, and only a small amount of purulent material was expressed. This wound was also irrigated with 100 mL of normal saline, and this was also packed with 1/4-inch Nu Gauze. A scrotal fluff dressing was placed on the scrotum with mesh panties. The patient was stable at the conclusion of the procedure. PLAN The plan is to have the patient be admitted to the hospitalist service for control of his diabetes and give him broad-spectrum antibiotics. Will perform bedside dressing change tomorrow. If it appears that he is not responding, or there is continued concern for undrained infection, will need to proceed to the operating room for formal exploration. JENN
[2018-11-28] MEDS: KETOROLAC 30 MG/ML VIAL IVP PRN (22:03)
[2018-11-29] VITALS (29 sets, daily range): BP systolic 106–135; BP diastolic 59–83
[2018-11-29] MEDS: ACETAMINOPHEN(*)1000 MG/100 ML 100 ML IVPB PRN ×2 (02:33→22:14)
[2018-11-29] MEDS: KCL/NS* 20 MEQ/1000 ML PREMIX 1,000 ML IV SCH ×6 (02:39→22:05)
[2018-11-29 05:10] LABS: PLATELET COUNT, AUTOMATED 158 K/uL (150-450)
[2018-11-29] MEDS ORDERED: KCL/NS* 20 MEQ/1000 ML PREMIX 1,000 ML IV ONE (06:15)
--- NOTE | 2018-11-29 08:49 | Hospitalist Progress Note ---
Subjective Progress Notes Subjective This patient was admitted for DKA and scrotal abscess. Patient Complains of: Cardiovascular: No: Chest Pain Respiratory: No: Shortness of Breath Physical Exam Vital Signs Date Time Temp Pulse Resp B/P (MAP) Pulse Ox O2 Delivery O2 Flow Rate FiO2 11/29/18 08:00 90 15 122/77 (92) 94 Nasal Cannula 1.0 11/29/18 07:00 98.8 Intake and Output 11/29/18 07:03 Intake Total 5878.1 ml Output Total 1105 ml Balance 4773.1 ml Intake IV Total 5878.1 ml Output Urine Total 1105 ml Cardiovascular: Regular Rate and Rhythm Respiratory: Clear to Auscultation Result Diagram: 11/29/1844811/29/18448 Assessment and Plan Problems: (1) DKA (diabetic ketoacidoses) Status: Acute Assessment & Plan: He did present with hyperglycemia and an elevated anion gap. He has no previous history of diabetes. He remains on an insulin infusion and fluid resuscitation. (2) Sepsis Status: Acute Assessment & Plan: He did have an elevated lactate at admission. This has improved with IV fluids. (3) Scrotal wall abscess Status: Acute Assessment & Plan: Dr. Gallo performed an I&D yesterday. He is on treatment with ertapenem. (4) Acute pancreatitis Assessment & Plan: His lipase did increase overnight. He is currently NPO. (5) Obesity, Class III, BMI 40-49.9 (morbid obesity) Status: Chronic Exam Sepsis Risk: No Definite Risk JOSE POST DO Nov 29, 2018 08:49
[2018-11-29] MEDS ORDERED: ENOXAPARIN 40 MG/0.4ML SYR SC SCH (09:00)
[2018-11-29] MEDS: KETOROLAC 30 MG/ML VIAL IVP PRN ×2 (09:07→15:04)
--- NOTE | 2018-11-29 10:14 | Medical Nutrition Therapy ---
Nutrition Anthropometrics Height (Inches): 69.00 Height (Calculated Centimeters: 175.238678 Weight (Pounds): 143 Weight (Calculated Kilograms): 65.091 Terrance Nutrition Score: Probably Inadequate Terrance Nutrition Risk Score: 16 Dietary Referral Nutrition Risk Factors: Nutrition Risk Comment: Physical Findings Physical Appearance: Morbidly Obese 40+ (Correct wt is 143kg) Skin Appearance Skin Appearance: Edema Edema Location Modifier: Both Edema Location: Scrotal Type of Edema: Degree of Edema: Gastrointestinal Symptoms GI Symtoms: Appetite Changes Tube Present: Bowel Sounds: Recent Bowel Pattern: Stool Characteristics: Nutritional Diagnosis Nutritional Risk Acuity 2: Blood Glucose > 300mg/dl, Sepsis, DKA Nutritional Risk Acuity 3: Morbid Obesity Nutritional Risk Acuity 4: Modified Diet Past Medical History: Sciatic leg pain, obesity Nutritional Acuity: 2-Moderate Nutrition Diagnosis: Inadequate Food Intake Nutrition Etiology: Increased Nutrient Needs Nutrition Problem/Etiology/Sym: Inadequate food intake as related to increased nutrient needs as evidenced by sepsis and reported unintentional wt loss. Energy Requirement: 3076 (m st jeor x 1.1 x 1.2) Adjusted Energy Requirement Re: 2576 (-500kcal for 1# wt loss per week) Protein Requirement: 143 (1 g protein/kg) Fluid Requirement: 3076 (1mL/1kcal) Diet Type: NPO/Ice Chips Only Nutrition Intervention: Incr diet as tolerated, Check glucose Nutrition Monitoring & Eval Nutritional Goals Comment: Progress from NPO to ADA diet as tolerated. RD Patient Assessment Time: [address] Assessment Type: RD Assessment Patient Nutrition Acuity: 2-Moderate Follow Up Date: Dec 01, 2018 Nutritional Comment: Pt admitted with confusion, fever, and decreased appetite. Glucose in the ER was 577. Significant other reports unintentional wt loss. Dx with sepsis, DKA, and scrotal wall abcess. Hx of sciatic leg pain and obesity. Currently NPO/Ice chips only day 1. Recommend ADA diet when PO is tolerated. Pt meds include: insulin, enoxaparin, and IV KCl/NaCl. Blood glucose has ranged from 346-271 and urinary ketones are elevated at 20. Pt does has non-pitting edema in both scrotal. Monitor for progression of diet and blood glucose levels. -VIRGINIA VANN Nov 29, 2018 10:14
[2018-11-29] MEDS: KCL/D1/2NS 20 MEQ 1000 ML 1,000 ML IV PRN ×2 (10:36→15:05)
[2018-11-29] MEDS ORDERED: INSULIN HUM REG 100 UN/ML 3 ML 100 UNIT in NS(*) 0.9% 100 ML BAG 99 ML IV SCH (12:00)
[2018-11-29] MEDS: ERTAPENEM(*) 1 GM VIAL 1 GM in NS(*) 0.9% 100 ML MINI-BAG 100 ML IVPB SCH (13:08)
[2018-11-29] MEDS ORDERED: MORPHINE 2 MG/ML SYR IVP ONE (17:25)
[2018-11-29] MEDS ORDERED: NEOMYCIN/POLYMYX/BACITR OINT 1 PACKET TP ONE (17:31)
[2018-11-29] MEDS ORDERED: NS 0.9% IRRIGATION 500 ML PLCT 500 ML IR ONE (17:32)
[2018-11-29] MEDS ORDERED: BACITRACIN/POLYMY B OINT 15 GM TP ONE (17:35)
[2018-11-30] VITALS (13 sets, daily range): BP systolic 94–142; BP diastolic 64–90
[2018-11-30] MEDS: KCL/D1/2NS 20 MEQ 1000 ML 1,000 ML IV PRN (02:50)
[2018-11-30] MEDS: KETOROLAC 30 MG/ML VIAL IVP PRN (05:41)
[2018-11-30 06:21] LABS: PLATELET COUNT, AUTOMATED 191 K/uL (150-450)
[2018-11-30] MEDS ORDERED: MORPHINE 2 MG/ML SYR IVP PRN (07:45)
[2018-11-30] MEDS ORDERED: INSULIN HUM REG 100 UN/ML 3 ML 100 UNIT in NS(*) 0.9% 100 ML BAG 99 ML IV SCH (07:53)
--- NOTE | 2018-11-30 08:03 | Hospitalist Progress Note ---
Subjective Progress Notes Subjective He has had flank pain intermittently. No chills, but fevers noted by staff. Physical Exam Vital Signs Date Time Temp Pulse Resp B/P (MAP) Pulse Ox O2 Delivery O2 Flow Rate FiO2 11/30/18 06:00 101.2 95 13 142/88 (106) 94 Nasal Cannula 1.0 Intake and Output 11/30/18 07:03 Intake Total 6131.2 ml Output Total 1730 ml Balance 4401.2 ml Intake IV Total 6131.2 ml Output Urine Total 1730 ml # Bowel Movements 1 General Appearance: Alert, Awake, No Acute Distress GI: Soft and Non-Tender Result Diagram: 11/30/1861211/30/18612 Assessment and Plan Problems: (1) DKA (diabetic ketoacidoses) Status: Acute Assessment & Plan: He presented with 4 months of increased UOP and 2 months of unintentional weight loss. In the ER, he had an AG of 19, VBG pH of 7.3, and a glucose of 577. He has no previous history of diabetes. HgA1c and C-Peptide are pending. His AG is now closed. Bicarbonate is still low. Glucose since midnight is 229-291. He remains on an insulin infusion because of the p ossibility of going to surgery and remaining NPO. Will increase the sliding scale that staff follow for the drip to low glucose. (2) Scrotal wall abscess Status: Acute Assessment & Plan: He had right sided scrotal symptoms for a week prior to admission. He went to the ER and was started on Augmentin 4 days prior to admission. It was drained by Dr. Bunch 2 days prior to admission. It is now bilateral and was I&D's by Dr. Gallo on 11/28 and 11/29. The patient has had wound, blood and urine cultures pending, but no growth to date. He is on treatment with ertapenem. His WBC increased and he continues to spike fevers. Vancomycin to be added today. (3) Sepsis Status: Acute Assessment & Plan: He presented with a fever for 2 days, worsening nausea, and confusion the day of admission. He had an elevated lactate, tachycardia, SBP in the 90's and a neutrophil predominance. This has improved with IV fluids. (4) Elevated lipase Status: Acute Assessment & Plan: It continues to rise since admission. CT upon admission didn't note any signs of pancreatitis. He denies any abdominal pain and has a benign abdominal exam. Certainly, DKA could cause it to be elevated, but would expect it to be coming down. The patient has been NPO since admission. Amylase to be added to this mornings labs. Continue to follow lipase and symptoms. (5) Obesity, Class III, BMI 40-49.9 (morbid obesity) Status: Chronic Exam Sepsis Risk: No Definite Risk DARBY BHATT MD Nov 30, 2018 08:03
[2018-11-30] MEDS ORDERED: VANCOMYCIN(*) 1 GM VIAL 2.5 GM in NS(*) 0.9% 500 ML BAG 500 ML IVPB ONE (08:15)
[2018-11-30] MEDS ORDERED: VANCOMYCIN IVPB ONE (08:15)
[2018-11-30] MEDS ORDERED: NS 0.9% IVPB ONE (08:15)
[2018-11-30] MEDS ORDERED: fentaNYL CITR 250 MCG/5 ML AMP ONE ×3 (08:41→11:23)
[2018-11-30] MEDS ORDERED: PROPOFOL EMUL(*) 10MG/ML 20 ML 20 ML ONE (08:42)
[2018-11-30] MEDS ORDERED: LIDOCAINE 2% IV 100 MG/5ML SYR ONE (08:43)
[2018-11-30] MEDS ORDERED: PANTOPRAZOLE SOD 40 MG IV VIAL IVP SCH (09:00)
[2018-11-30] MEDS ORDERED: POVIDONE IOD 10% OINT 30 GM TB TP ONE (09:53)
[2018-11-30] MEDS ORDERED: ROPIVACAINE 0.2% 20 ML VIAL ONE (09:54)
[2018-11-30] MEDS ORDERED: NORMOSOL R SOLN(*) 1000 ML BAG 1,000 ML IV ONE (10:00)
[2018-11-30] MEDS ORDERED: ceFAZolin(*) 1 GM VIAL 1 GM, GENTAMICIN(*) 80 MG/2 ML VIAL 60 MG in NS 0.9% IRRIGATION ... IR ONE ×4 (10:00→10:40)
[2018-11-30] MEDS ORDERED: ONDANSETRON 4 MG/2 ML VIAL ONE (10:16)
[2018-11-30] MEDS ORDERED: KETAMINE HCL 200 MG/20 ML MDV ONE ×2 (10:16→11:22)
--- NOTE | 2018-11-30 11:08 | Antimicrobial Stewardship ---
Antimicrobial Time Out Antimicrobial Stewardship MD Service: Hospitalist Indications: Other (Scrotal abscess) Antimicrobial Used Invanz started on 11/28 and Vancomycin added on 11/30 due to patient spiking fevers and increasing WBC. Start Date: Nov 28, 2018 Culture Results: No (cultures pending) Eligible for PO Conversion Eligable for PO Conversion: No BETZAIDA CURRIE Nov 30, 2018 11:08
--- NOTE | 2018-11-30 12:39 | Procedure Note ---
Central Line Procedure Note Consent Signed: No Central Line Lumen: Triple Central Line Procedure: Chlorhexidine Prep, Sterile Drapes Applied, Sterile Dressing Applied Central Line Position: R Internal Jugular Anesthesia Used: 1% Lidocaine CC's of Anesthesia: 2 Complications: None Central Line Post Position: Sutured, Confirmed Blood Return, Position Confirmed w/CXR JEFF PORTILLO MD Nov 30, 2018 12:39
[2018-11-30] MEDS: fentaNYL CITR 100 MCG/2 ML AMP ONE (12:56)
[2018-11-30] MEDS: ERTAPENEM(*) 1 GM VIAL 1 GM in NS(*) 0.9% 100 ML MINI-BAG 100 ML IVPB SCH ×2 (13:00→13:10)
--- NOTE | 2018-11-30 13:13 | NUR ---
Patient in PACU so RN took Antibiotic over to [employer]CHNICIAN to have them give the Invanze
[2018-11-30] MEDS ORDERED: NORMOSOL R SOLN(*) 1000 ML BAG 1,000 ML IV PRN (13:30)
[2018-11-30] MEDS ORDERED: PANT40VI4 IVP (13:35)
[2018-11-30] MEDS ORDERED: [UNRECOGNIZED DRUG - CODE] IV (13:35)
[2018-11-30] MEDS ORDERED: VANC1.5V3 IV (13:35)
[2018-11-30] MEDS ORDERED: ENOX40DI9 SC (13:35)
[2018-11-30] MEDS ORDERED: ERTA1VIA IV (13:35)
--- NOTE | 2018-11-30 13:48 | RADIOLOGY IMAGING REPORT ---
FACILITY: [facility] [place] PATIENT NAME: Jimbo Varghese : 1980 MR: [id number] V: [id number] EXAM DATE: ORDERING PHYSICIAN: JEFF PORTILLO TECHNOLOGIST: Location: [facility] [place] Patient: Jimbo Varghese : 1980 Visit/Account:[id number] Date of Sevice: 11/30/2018 CHEST SINGLE AP HISTORY: Placement of central line right side. COMPARISON: None FINDINGS: Cardiomediastinal contours: The heart size is normal. Lungs and pleura: There is no pneumothorax or pleural effusion following placement of right internal jugular vein catheter. Bones/soft tissues: There are no findings of a fracture. Catheter: There has been placement of a right internal jugular vein catheter. The tip of the catheter is at or near the cavoatrial junction. IMPRESSION: 1. Placement of right internal jugular vein triple-lumen catheter. 2. No findings of pneumothorax or pleural effusion. Report Dictated By: Bari Mendes MD at 11/30/2018 1:41 PM Report E-Signed By: Bari Mendes MD at 11/30/2018 1:41 PM WSN:[id number]
--- NOTE | 2018-11-30 14:06 | Hospitalist Depart ---
Discharge Summary Reason for Hosp/Final Diag: (1) Scrotal wall abscess Status: Acute Hospital Course & Plan: He had right sided scrotal symptoms for a week prior to admission. He went to the ER and was started on Augmentin 4 days prior to admission. It was drained by Dr. Preciado 2 days prior to admission. CT and US in the ER confirmed that it was bilateral involvement and no gas or air seen. He had bedside I&D'd by Dr. Gallo (Urology) on 11/28 and 11/29. The patient has had wound, blood and urine cultures. The testicular abscess aspiration initially showed many GPC and few GNR and the updated read is just reporting "checking for possible pathogens". The groin wound culture gram stain was initially read as many GPC and GNR, but was updated today to just GPC growth in the Thio Broth. Blood cultures are without growth to date. He was started on treatment with ertapenem in the ER and this was continued. Today, his WBC increased and he continued to spike fevers. Vancomycin was added. He went to the OR this morning and was found to have much purulent material into the bilateral inguinal canals. He had extensive scrotal debridement. General surgery was consulted to the OR to evaluate for a pe rirectal source which there did not appear to be any, per Dr. Tinsley. Necrotizing fascitis is a possibility given the gram stain reports and the extensiveness of the infection. Dr. Gallo recommended the patient be transferred to a higher level of care because the patient would likely need extensive debridement and multiple surgeries that were beyond our hospitals expertise. Dr. Aguilar is the accepting surgeon at [facility] [place]. Lovenox 40mg a day was held this morning. Protonix IV for stress ulcer prophylaxis. IV Ketoralac and Acetaminophen for pain. (2) DKA (diabetic ketoacidoses) Status: Acute Hospital Course & Plan: He presented with 4 months of increased UOP and 2 months of unintentional weight loss. In the ER, he had an AG of 19, VBG pH of 7.3, and a glucose of 577. He has no previous history of diabetes. HgA1c and C-Peptide are pending. His AG is now closed. Bicarbonate is still low. Glucose since midnight is 229-291. He remains on an insulin infusion (i.e. 4 units/hour) because of the possibility of going to surgery and remaining NPO. He is on D51/2NS with 20mEq KCL at 100cc/hour. (3) Sepsis Status: Acute Hospital Course & Plan: He presented with a fever for 2 days, worsening nausea, and confusion the day of admission. He had an elevated lactate, tachycardia, SBP in the 90's and a neutrophil predominance. Lactate has improved. BP has remained normal. Prior to surgery his heart rate normalized, but was elevated to the 130's during the case. Now, it is in the low 100's. (4) Elevated lipase Status: Acute Hospital Course & Plan: It continues to rise since admission. CT upon admission didn't note any signs of pancreatitis. He denies any abdominal pain and has a benign abdominal exam. Certainly, DKA could cause it to be elevated, but would expect it to be coming down. The patient has been NPO since admission. Amylase was added to this mornings labs was elevated. Continue to follow lipase and symptoms. (5) Obesity, Class III, BMI 40-49.9 (morbid obesity) Status: Chronic Departure Weight (Pounds): 330 Weight (Ounces): 8.0 Result Diagram: 11/30/1861211/30/18612 Item Value Date Time Sodium Level 127 mmol/L L 11/28/18 1254 Potassium Level 3.9 mmol/L 11/28/18 1254 Chloride Level 92 mmol/L L 11/28/18 1254 Carbon Dioxide Level 16 mmol/L L 11/28/18 1254 Blood Urea Nitrogen 23 mg/dl H 11/28/18 1254 Creatinine 0.80 mg/dl 11/28/18 1254 Glomerular Filtration Rate Calc > 60.0 11/28/18 1254 Random Glucose 577 mg/dl *H 11/28/18 1254 Lactate 2.9 mmol/L H 11/28/18 1254 Lactate 1.9 mmol/L 11/28/18 1756 Calcium Level 9.1 mg/dl 11/28/18 1254 Total Bilirubin 0.9 mg/dl 11/28/18 1254 Aspartate Amino Transf (AST/SGOT) 27 U/L 11/28/18 1254 Alanine Aminotransferase (ALT/SGPT) 25 U/L 11/28/18 1254 Alkaline Phosphatase 132 U/L H 11/28/18 1254 Total Protein 7.1 g/dl 11/28/18 1254 Lipase 515 U/L H 11/28/18 1254 Albumin 3.3 g/dl L 11/28/18 1254 Whole Blood Glucose 508 mg/DL *H 11/28/18 1623 Random Glucose 524 mg/dl *H 11/28/18 1638 Sodium Level 130 mmol/L L 11/28/18 1756 Chloride Level 98 mmol/L 11/28/18 1756 Potassium Level 3.5 mmol/L 11/28/18 1756 Carbon Dioxide Level 17 mmol/L L 11/28/18 1756 Blood Urea Nitrogen 26 mg/dl H 11/28/18 1756 Creatinine 0.80 mg/dl 11/28/18 1756 Random Glucose 499 mg/dl H 11/28/18 1756 Lipase 1198 U/L H 11/29/18 0449 Total Protein 5.1 g/dl L 11/29/18 0449 Albumin 2.1 g/dl L 11/29/18 0449 Alkaline Phosphatase 87 U/L 11/29/18 0449 Alanine Aminotransferase (ALT/SGPT) 26 U/L 11/29/18 0449 Aspartate Amino Transf (AST/SGOT) 23 U/L 11/29/18 0449 Total Bilirubin 0.5 mg/dl 11/29/18 0449 Magnesium Level 2.3 mg/dl H 11/29/18 0449 Calcium Level 7.8 mg/dl L 11/29/18 0449 Random Glucose 365 mg/dl H 11/29/18 0449 Creatinine 0.50 mg/dl L 11/29/18 0449 Blood Urea Nitrogen 24 mg/dl H 11/29/18 0449 Chloride Level 104 mmol/L 11/29/18 0449 Potassium Level 3.9 mmol/L 11/29/18 0449 Sodium Level 133 mmol/L L 11/29/18 0449 Carbon Dioxide Level 18 mmol/L L 11/29/18 0449 Lipase 2343 U/L H 11/30/18 0613 Amylase Level 165 U/L H 11/30/18 0613 Albumin 2.0 g/dl L 11/30/18 0613 Total Protein 5.1 g/dl L 11/30/18 0613 Total Bilirubin 0.5 mg/dl 11/30/18 0613 Aspartate Amino Transf (AST/SGOT) 32 U/L 11/30/18 0613 Alanine Aminotransferase (ALT/SGPT) 49 U/L 11/30/18 0613 Alkaline Phosphatase 108 U/L 11/30/18 0613 Sodium Level 133 mmol/L L 11/30/18 0613 Potassium Level 3.9 mmol/L 11/30/18 0613 Chloride Level 108 mmol/L H 11/30/18 0613 Carbon Dioxide Level 17 mmol/L L 11/30/18 0613 Blood Urea Nitrogen 9 mg/dl 11/30/18 0613 Creatinine 0.40 mg/dl L 11/30/18 0613 Random Glucose 291 mg/dl H 11/30/18 0613 Calcium Level 7.4 mg/dl L 11/30/18 0613 Urine Leukocyte Esterase Large H 11/28/18 1254 Urine RBC 15 /HPF 11/28/18 1254 Urine WBC 30 /HPF 11/28/18 1254 Urine Squamous Epithelial Cells Many /LPF H 11/28/18 1254 Urine Urobilinogen 2.0 mg/dL 11/28/18 1254 Urine Ketones 20 mg/dL H 11/28/18 1254 Urine Glucose (UA) 500 mg/dL 11/28/18 1254 Urine Protein 30 mg/dL 11/28/18 1254 White Blood Count 9.0 k/uL 11/28/18 1254 White Blood Count 8.6 k/uL 11/29/18 0449 White Blood Count 11.7 k/uL H 11/30/18 0613 Hemoglobin 13.2 g/dL L 11/30/18 0613 Hemoglobin 12.6 g/dL L 11/29/18 0449 Hemoglobin 14.7 g/dL 11/28/18 1254 Mean Corpuscular Volume 88.3 fL 11/28/18 1254 Mean Corpuscular Volume 88.5 fL 11/29/18 0449 Mean Corpuscular Volume 87.5 fL 11/30/18 0613 Platelet Count 191 K/uL 11/30/18 0613 Platelet Count 158 K/uL 11/29/18 0449 Platelet Count 192 K/uL 11/28/18 1254 Neutrophils (%) (Auto) 85.4 % H 11/28/18 1254 Lymphocytes (%) (Auto) 8.8 % L 11/28/18 1254 Monocytes (%) (Auto) 5.0 % 11/28/18 1254 Eosinophils (%) (Auto) 0.1 % L 11/28/18 1254 Basophils (%) (Auto) 0.7 % 11/28/18 1254 Neutrophils % (Manual) 69 % 11/29/18 0449 Band Neutrophils % 8 % 11/29/18 0449 Lymphocytes % (Manual) 19 % 11/29/18 0449 Monocytes % (Manual) 4 % L 11/29/18 0449 Eosinophils % (Manual) 0 % L 11/29/18 0449 Neutrophils (%) (Auto) 83.0 % H 11/30/18 0613 Lymphocytes (%) (Auto) 11.6 % L 11/30/18 0613 Monocytes (%) (Auto) 4.6 % 11/30/18 0613 Eosinophils (%) (Auto) 0.5 % 11/30/18 0613 Basophils (%) (Auto) 0.3 % 11/30/18 0613 Venous Blood pH 7.30 L 11/28/18 1254 Venous Blood Partial Pressure CO2 29 mmHg 11/28/18 1254 Venous Blood Partial Pressure O2 64 mmHg 11/28/18 1254 Venous Blood HCO3 14 mmol/L 11/28/18 1254 Venous Blood Oxygen Saturation 91 % 11/28/18 1254 Blood Cultures from 11/28/18 have no growth to date SPEC #: [id number] LAITH: 11/28/18 STATUS: RES REQ #: [id number] RECD: 11/28/18 [facility] DR: ELICIA MCMILLAN SOURCE: ABSCESS ENTR: 11/28/18 [facility] DR: ROME BROWN DO [place] [facility] SSDESC: JOSE DUEÑAS MD ORDERED: CULT WOUND/GS COMMENTS: Additional Information: Testicular Procedure Result Verified GRAM STAIN Final 11/28/18 MANY GRAM POSITIVE COCCI MANY GRAM NEGATIVE RODS FEW GRAM POSITIVE RODS RARE EPITHELIAL CELLS RARE WHITE BLOOD CELLS WOUNDCULTURE Preliminary 11/30/18120 Organism 1 GRAM POSITIVE COCCI GROWTH ONLY IN THIO BROTH, NO GROWTH ON PLATES ID AND SENSITIVITY TO FOLLOW IMMATURE GROWTH ON PLATES ON DAY 2 REINCUBATED SPEC #: [id number] LAITH: 11/28/18 STATUS: RES REQ #: [id number] RECD: 11/28/18 [facility] DR: ELICIA MCMILLAN SOURCE: PENIS ENTR: 11/28/[address]: ROME BROWN DO SPDESC: JOSE PRECIADO MD ORDERED: CULT GENITAL/GS COMMENTS: Comments: Aspiration from testicular abcess ---- -------- Procedure Result Verified GRAM STAIN Final 11/28/18-1749 MANY RED BLOOD CELLS MANY GRAM POSITIVE COCCI FEW GRAM NEGATIVE RODS RARE WHITE BLOOD CELLS GENITAL CULT Preliminary 11/30/18115 CHECKING FOR POSSIBLE PATHOGENS, WORKUP IN PROGRESS. CULTURE REINCUBATED. SPEC #: [id number] LAITH: 11/28/18 STATUS: COMP REQ #: [id number] RECD: 11/28/18 [facility] DR: ROME BROWN DO SOURCE: TRISTEN ENTR: 11/28/18 [facility] DR: JOSE PRECIADO MD [facility]: ORDERED: CULT URINE Procedure Result Verified URINE CULTURE Final 11/30/18-114 NO GROWTH AFTER 2 DAYS Imaging 11/28/18 Testicular US - 1. There are complex bilateral fluid hydroceles left greater than right. Bilaterally, there is increased blood flow noted within the testes and heterogeneously enlarged and vascular epididymides. Findings are concerning for bilateral epididymal orchitis with bilateral hydroceles. When compared to recent CT scan, diffuse inflammation and complex fluid collections are also noted on CT scan. Recommend urology consultation. 2. Interval resolution of complex fluid within the right groin. No fluid collection is noted within the left groin. 11/28/18 Groin US - 1. There are complex bilateral fluid hydroceles left greater than right. Bilaterally, there is increased blood flow noted within the testes and heterogeneously enlarged and vascular epididymides. Findings are concerning for bilateral epididymal orchitis with bilateral hydroceles. When compared to recent CT scan, diffuse inflammation and complex fluid collections are also noted on CT scan. Recommend urology consultation. 2. Interval resolution of complex fluid within the right groin. No fluid collection is noted within the left groin. 11/28/18 Chest/Abd/Pelvis CT - 1. There is diffuse scrotal edema with a moderate sized peripherally enhancing fluid collection in the left hemiscrotum surrounding the left testicle which may represent complex hydrocele, pyocele, or abscess. Smaller right-sided peritesticular fluid collection. 2. Soft tissue edema and stranding tracks posteriorly along the perineum and superiorly along the right groin. No scrotal or perineal gas. 3. No other acute findings in the chest, abdomen, or pelvis. 4. Hepatic steatosis. Condition: Critical Discharge: Another Hospital Discharge Instructions Home Meds Active Scripts Tramadol Hcl (TRAMADOL HCL) 50 Mg Tablet, 1-2 TAB PO Q4H PRN for PAIN, #20 TAB 0 Refills Prov:JOSE PRECIADO MD 11/26/18 Amoxicillin/Pot Clav 875-125 Mg Tab (AUGMENTIN 875-125 TABLET) 1 Each Tablet, 1 TAB PO Q12H for 7 Days, #14 TAB Prov:JAYESH MACDONALD MD 11/24/18 Discontinued Scripts Hydrocodone Bit/Acetaminophen (HYDROCODON-ACETAMINOPHEN 5-325) 1 Each Tablet, 1 EACH PO Q4-6H PRN for PAIN, #6 TAB Prov:ELICIA MCMILLAN 10/15/18 Special Instructions: NPO Venous Thromboembolism Antithrombotics Is Pt On Any Antithrombotics?: No DARBY BHATT MD Nov 30, 2018 14:06
[2018-11-30] MEDS ORDERED: VANCOMYCIN(*) 1 GM VIAL 1 GM, VANCOMYCIN (*) 0.5 GM VIAL 0.5 GM in NS(*) 0.9% 250 ML BA... IVPB SCH (16:00)
--- NOTE | 2018-11-30 22:49 | OPERATIVE REPORT 1 ---
EVENT DATE: November 30, 2018 SURGEON: Chip Gallo MD ANESTHESIOLOGIST: Rogers Neal MD ANESTHESIA: General. DOCTOR OF AUDIOLOGY: Peter Tinsley MD PREOPERATIVE DIAGNOSIS Bilateral scrotal infection. POSTOPERATIVE DIAGNOSIS Bilateral groin, scrotal, and right perineal infection with abscess. PROCEDURE PERFORMED 1. Cystoscopy. 2. Bilateral scrotal exploration with debridement, including partial scrotectomy, and irrigation of wound. ESTIMATED BLOOD LOSS 300 mL. INTRAVENOUS FLUIDS Crystalloids. DRAINS 16-Chinese Fabian catheter. COMPLICATIONS None. CONDITION Patient was taken to recovery room in stable condition. STATEMENT OF MEDICAL NECESSITY Patient is a 38-year-old male who was originally seen in the emergency room on the evening of the with complaint of left scrotal swelling. His CT scan revealed what appeared to be a loculated pyocele around the left testis. Of note, the patient had undergone a right incision and drainage of a scrotal abscess two days prior by Dr. Rivera Bunch of General Surgery, and was started on Augmentin. At that time, a scrotal incision and drainage of the left hemiscrotum was performed in the emergency room. A small amount of purulent material was drained. The loculations were broken down with a cotton tip applicator, and the wound was irrigated. The right side was also reexplored and a small amount of purulent material removed from this as well. At that point, the patient had undiagnosed diabetes and had a random blood glucose of 577. At that time, his white count was 9 with a left shift of 85%. The patient was admitted to the ICU, where he was under the care of the hospitalist for his uncontrolled diabetes and elevated lipase, which was 515. Yesterday, the patient was evaluated and had had significant improvement in his exam, with only a small amount of discharge from each scrotal incision by exploration. He had remained afebrile, with a white count that was slightly decreased to 6.8, down from 6.9. His blood sugars were in the 300 range. However, this morning, the patient experienced a low-grade temperature of 101.2, and his white count increased to 11.7. Physical exam revealed increased swelling in both hemiscrotums as well as new induration and swelling in the right perineum down to the buttock area. Therefore, he is now being brought to the operating room for planned scrotal exploration and debridement if indicated. DESCRIPTION OF PROCEDURE Patient was brought to the operating room. After general anesthetic was obtained, he was placed in the dorsal lithotomy position and prepped and draped in the usual sterile manner. Anesthetic cystoscopy was performed with the 18- Chinese rigid scope and both 30- and 70-degree lenses. He had a normal-appearing pendulous and bulbar urethra. His membranous urethra was also normal. His prostatic urethra revealed a wide-open fossa. His bladder was 1+ trabeculated. There were no bladder lesions or other abnormalities. He had slit-like ureteral orifices, both effluxing clear urine. Pullout cystoscopic exam was also normal. At this point, a 16-Chinese Fabian catheter was placed sterilely on the field. A left scrotal incision was made from the prior incision and drainage down inferiorly. There was a moderate amount of nonviable tissue around the testis and cord structures, but this did not appear to be invading beyond the tunica vaginalis. The testis itself and epididymis palpated completely normal. I was able to track my finger down more posteriorly and then across the midline to the patient's right side. Therefore, the incision on the right side was extended down inferiorly as well. Again, there was a moderate amount of nonviable tissue around the testis but not involving the testis itself, and it appeared to proceed up the cord. This infection appeared to going down to the right perineal/buttock area. At this point, I consulted Dr. Peter Tinsley of General Surgery for evaluation of possible rectal involvement. He scrubbed in and explored this area down to the right perineum, and there did not appear to be any involvement in the rectum. He debrided the right side and followed the infection up to the right inguinal canal. Debridement was also carried out around the cord structures, but again the testis on this side also appeared completely normal to palpation, and infection did not appear to involve the cord itself. At this point, I then proceeded to debride the patient's left side, and it involved most of the scrotum, and he ended up having a partial scrotectomy of approximately 80%. The infection also proceeded up the left inguinal canal, which I was able to partially debride, but the question was whether he would need a full scrotal and/or inguinal exploration. We debrided greater than 90% of the nonviable tissues. The whole wound bed was irrigated. Bleeding vessels were controlled with electrocautery, and the wound was packed with Betadine- soaked Kerlix gauze. A fluff dressing was placed on this, and then mesh panty support was placed to keep the dressing in place. The patient was then placed supine, and Dr. Tinsley placed a central line. The patient was next awakened and taken to the recovery room in stable condition. JENN
== END 2018-11-30 14:45 | disposition short-term general hospital (02) | DRG 853 ==
LOC: ER 12:32 → ICU 17:19 → UNDODISIN 19:42
PROVIDERS: ADMIT Internal Medicine; ATTEND Internal Medicine
PROC: 0V95XZZ Drainage of Scrotum, External Approach (ICD-10-PCS; principal; 2018-11-28)
PROC: 02HV33Z Insertion of Infusion Device into Superior Vena Cava, Percutaneous Approach (ICD-10-PCS; 2018-11-30)
PROC: 0VB5XZZ Excision of Scrotum, External Approach (ICD-10-PCS; 2018-11-30)
PROC: 0MBK0ZZ Excision of Perineum Bursa and Ligament, Open Approach (ICD-10-PCS; 2018-11-30)
PROC: 0TJB8ZZ Inspection of Bladder, Via Natural or Artificial Opening Endoscopic (ICD-10-PCS; 2018-11-30 10:10)
DX: A41.9 Sepsis, unspecified organism (principal); E11.10 Type 2 diabetes mellitus with ketoacidosis without coma; M72.6 Necrotizing fasciitis; K85.90 Acute pancreatitis without necrosis or infection, unspecified; Z68.42 Body mass index [BMI] 45.0-49.9, adult; N43.1 Infected hydrocele; L02.818 Cutaneous abscess of other sites; B37.49 Other urogenital candidiasis; E66.01 Morbid (severe) obesity due to excess calories; B96.89 Other specified bacterial agents as the cause of diseases classified elsewhere; G47.33 Obstructive sleep apnea (adult) (pediatric); N49.2 Inflammatory disorders of scrotum; M54.30 Sciatica, unspecified side; Z87.891 Personal history of nicotine dependence
CPT/HCPCS: 36415; 36416; 71045; 71260; 74177; 76705; 76870; 81001; 82040; 82150; 82247; 82310; 82374; 82435; 82565; 82803; 82947; 82948; 83036; 83605; 83690; 83735; 84075; 84132; 84155; 84295; 84450; 84460; 84520; 84681; 85025; 87040; 87070; 87073; 87077; 87088; 87186; 87205; 96361; 96365; 96367; 96375; 96376; 99285; A4338; C1758; C9113; J0131; J1335; J1650; J1815; J1885; J2001; J2270; J2405; J2704; J2795; J3010; J3370; J3480; J3490; J7030; J7040; J7050; Q9967

== ENCOUNTER → 2018-11-30 | Outpatient (REF) ==
[~2018-11-30] MED LIST changes: +ENOX40DI9 SC; +ERTA1VIA IV; +PANT40VI4 IVP; +VANC1.5V3 IV; +[UNRECOGNIZED DRUG - CODE] IV
== END ==
LOC: AMB 14:01
PROVIDERS: ATTEND Nurse Practitioner
DX: Z02.9 Encounter for administrative examinations, unspecified (principal)
CPT/HCPCS: A0425; A0428